=== PATIENT | male | born 1955 | race Caucasian/White ===

== ENCOUNTER 2016-08-17 03:43 | Inpatient (IN) | payer OTHER ==
[~2016-08-17] VITALS: Ht 185.4 cm; Wt 86.0 kg
[~2016-08-17 03:43] MED LIST: AMITRIPTYLIN25 MG PO; ASPIRIN EC81 MG PO; B-121000 MCG PO; BACLOFEN10 MG PO; DOCUSATE SODIUM1 TAB PO; DOXYCYCL HYC100 MG PO; FLEXERIL PO; FLEXERIL5 MG PO; HARVONI PO; IPRATROPIU0.5 MG/3 M NEB; LASIX 40 MG40 MG/TAB PO; LISINOPRIL10 MG PO; LYRICA100 MG PO; METFORMIN500 MG PO; MIRTAZAPINE15 MG PO; MOTRIN IB200 MG OR; MULTIVITAMIN PO; OMEPRAZOLE20 MG PO; PREDNISONE10 MG PO; PROVENTIL HFA IN; SILVADENE1 % EX; SIMVASTATIN20 MG PO; TEMAZEPAM15 MG PO; TRAZODONE50 MG PO; TYLENOL # 31 TAB OR; VITAMIN B-1100 M2 PO; ZOFRAN ODT4 MG OR
[2016-08-17 05:12] LABS: HEMATOCRIT 44.9 % (39.0-50.0); HEMOGLOBIN 15.4 g/dl (14.0-18.0); IMMATURE GRANULOCYTES 0.4 % (0.0-1.0); MEAN CELL VOLUME 87.9 fL CALC (80.0-100.0); MEAN CORPUSCULAR HGB 30.1 pG CALC (26.0-32.0); MEAN CORPUSCULAR HGB CONC 34.3 g/L CALC (32.0-36.0); NEUT# 13.44 thou/uL (1.82-7.42); RED BLOOD COUNT 5.11 mill/uL (4.70-6.10); RED CELL DISTRI WIDTH 15.2 % (11.5-15.5)
[2016-08-17 05:29] LABS: ALBUMIN 4.2 g/dL (3.2-5.0); ALKALINE PHOSPHATASE 97 u/l (38-126); ANION GAP 20 (6-22 (CALC)); BILIRUBIN, TOTAL 0.3 mg/dL (0.0-1.4); BUN 6 mg/dL (9-20); BUN/CREATININE RATIO 6 (12-20 (CALC)); CALCIUM 9.1 mg/dL (8.4-10.2); CARBON DIOXIDE 20 mmol/l (22-30); CHLORIDE 106 mmol/l (95-108); GFR > 60 ML/MIN (>=60 (CALC)); GFR FOR AFR.AMER. > 60 ML/MIN (>=60 (CALC)); GLUCOSE 136 mg/dL (75-110); POTASSIUM 4.1 mmol/l (3.5-5.1); PROTHROMBIN TIME 11.3 SECONDS (9.0-12.5); SGOT/AST 30 u/l (17-59); SGPT/ALT 36 u/l (21-72); SODIUM 142 mmol/l (137-146); TOTAL PROTEIN 7.3 g/dL (6.3-8.2)
[2016-08-17 11:09] LABS: URINE BILIRUBIN - DIPSTICK NEGATIVE (NEGATIVE); URINE BLOOD DIPSTICK NEGATIVE (NEGATIVE); URINE CLARITY CLEAR; URINE COLOR YELLOW; URINE GLUCOSE - DIPSTICK NEGATIVE (NEGATIVE); URINE KETONE NEGATIVE (NEGATIVE); URINE LEUK ESTERASE NEGATIVE (NEGATIVE); URINE NITRITE - DIPSTICK NEGATIVE (Negative); URINE PROTEIN - DIPSTICK NEGATIVE (NEG-TRACE); URINE UROBILINOGEN - DIPSTICK 0.2 E.U./dL (0.2)
[2016-08-17 11:32] VITALS: BP 152/90
[2016-08-17] MEDS ORDERED: TRAMADOL HCL50 MG PO (11:33)
[2016-08-17 15:08] VITALS: BP 166/90
[2016-08-17 19:15] VITALS: BP 152/96
[2016-08-17 23:35] VITALS: BP 173/78
[2016-08-18 04:44] VITALS: BP 149/92
[2016-08-18 07:39] VITALS: BP 158/86
[2016-08-18 07:40] LABS: HEMATOCRIT 44.9 % (39.0-50.0); HEMOGLOBIN 14.7 g/dl (14.0-18.0); IMMATURE GRANULOCYTES 1.4 % (0.0-1.0); MEAN CELL VOLUME 90.2 fL CALC (80.0-100.0); MEAN CORPUSCULAR HGB 29.5 pG CALC (26.0-32.0); MEAN CORPUSCULAR HGB CONC 32.7 g/L CALC (32.0-36.0); NEUT# 16.09 thou/uL (1.82-7.42); RED BLOOD COUNT 4.98 mill/uL (4.70-6.10); RED CELL DISTRI WIDTH 15.8 % (11.5-15.5)
[2016-08-18 08:01] LABS: ANION GAP 16 (6-22 (CALC)); BUN 8 mg/dL (9-20); BUN/CREATININE RATIO 9 (12-20 (CALC)); CALCIUM 9.1 mg/dL (8.4-10.2); CARBON DIOXIDE 24 mmol/l (22-30); CHLORIDE 110 mmol/l (95-108); CREATININE 0.9 mg/dL (0.7-1.3); GFR > 60 ML/MIN (>=60 (CALC)); GFR FOR AFR.AMER. > 60 ML/MIN (>=60 (CALC)); GLUCOSE 136 mg/dL (75-110); SODIUM 146 mmol/l (137-146)
[2016-08-18 15:08] VITALS: BP 154/97
[2016-08-18 20:23] VITALS: BP 173/98
[2016-08-19 03:55] VITALS: BP 167/99
[2016-08-19 06:01] LABS: HEMATOCRIT 45.1 % (39.0-50.0); HEMOGLOBIN 15.1 g/dl (14.0-18.0); IMMATURE GRANULOCYTES 0.6 % (0.0-1.0); MEAN CELL VOLUME 90.4 fL CALC (80.0-100.0); MEAN CORPUSCULAR HGB 30.3 pG CALC (26.0-32.0); MEAN CORPUSCULAR HGB CONC 33.5 g/L CALC (32.0-36.0); NEUT# 12.52 thou/uL (1.82-7.42); RED BLOOD COUNT 4.99 mill/uL (4.70-6.10); RED CELL DISTRI WIDTH 15.7 % (11.5-15.5)
[2016-08-19 06:14] LABS: ANION GAP 19 (6-22 (CALC)); BUN 10 mg/dL (9-20); BUN/CREATININE RATIO 10 (12-20 (CALC)); CALCIUM 9.4 mg/dL (8.4-10.2); CARBON DIOXIDE 22 mmol/l (22-30); CHLORIDE 111 mmol/l (95-108); GFR > 60 ML/MIN (>=60 (CALC)); GFR FOR AFR.AMER. > 60 ML/MIN (>=60 (CALC)); GLUCOSE 99 mg/dL (75-110); POTASSIUM 3.6 mmol/l (3.5-5.1); SODIUM 148 mmol/l (137-146)
[2016-08-19 08:55] VITALS: BP 174/106
[2016-08-19 09:31] VITALS: BP 174/108
[2016-08-19] MEDS ORDERED: ZITHROMAX500 MG PO (13:32)
[2016-08-19] MEDS ORDERED: VANTIN200 M1 PO (13:32)
== END 2016-08-19 15:14 | disposition home or self-care (01) | DRG 871 ==
LOC: ENPENDDIS → ED 03:43 → ED-I 04:10 → ED 04:10 → ED-I 09:30 → ED 09:48 → MS2 09:49
PROVIDERS: Emergency Medicine; Internal Medicine; ADMIT Internal Medicine; ATTEND Internal Medicine
DX: A41.9 Sepsis, unspecified organism (principal); J96.00 Acute respiratory failure, unspecified whether with hypoxia or hypercapnia; E87.2 Acidosis; J18.9 Pneumonia, unspecified organism; J44.0 Chronic obstructive pulmonary disease with (acute) lower respiratory infection; R65.20 Severe sepsis without septic shock; M47.812 Spondylosis without myelopathy or radiculopathy, cervical region; G89.29 Other chronic pain; E11.40 Type 2 diabetes mellitus with diabetic neuropathy, unspecified; F43.10 Post-traumatic stress disorder, unspecified; Z90.81 Acquired absence of spleen; Z89.511 Acquired absence of right leg below knee; Z89.512 Acquired absence of left leg below knee; Z86.73 Personal history of transient ischemic attack (TIA), and cerebral infarction without residual deficits; Z79.4 Long term (current) use of insulin; Z87.891 Personal history of nicotine dependence
CPT/HCPCS: J1650; J2060

== ENCOUNTER 2016-08-20 08:56 | Emergency (ER) | payer OTHER ==
[~2016-08-20] VITALS: Ht 185.4 cm; Wt 100.0 kg
[~2016-08-20 08:56] MED LIST changes: +TRAMADOL HCL50 MG PO; +VANTIN200 M1 PO; +ZITHROMAX500 MG PO
[2016-08-20 09:47] LABS: HEMATOCRIT 47.8 % (39.0-50.0); HEMOGLOBIN 16.4 g/dl (14.0-18.0); IMMATURE GRANULOCYTES 0.9 % (0.0-1.0); MEAN CELL VOLUME 87.2 fL CALC (80.0-100.0); MEAN CORPUSCULAR HGB 29.9 pG CALC (26.0-32.0); MEAN CORPUSCULAR HGB CONC 34.3 g/L CALC (32.0-36.0); NEUT# 22.36 thou/uL (1.82-7.42); RED BLOOD COUNT 5.48 mill/uL (4.70-6.10); RED CELL DISTRI WIDTH 15.3 % (11.5-15.5)
[2016-08-20 09:54] LABS: ALBUMIN 4.5 g/dL (3.2-5.0); ALKALINE PHOSPHATASE 119 u/l (38-126); ANION GAP 21 (6-22 (CALC)); BILIRUBIN, TOTAL 0.7 mg/dL (0.0-1.4); BUN 16 mg/dL (9-20); BUN/CREATININE RATIO 15 (12-20 (CALC)); CALCIUM 9.4 mg/dL (8.4-10.2); CARBON DIOXIDE 21 mmol/l (22-30); CHLORIDE 103 mmol/l (95-108); CREATININE 1.1 mg/dL (0.7-1.3); GFR > 60 ML/MIN (>=60 (CALC)); GFR FOR AFR.AMER. > 60 ML/MIN (>=60 (CALC)); GLUCOSE 124 mg/dL (75-110); POTASSIUM 3.8 mmol/l (3.5-5.1); SGOT/AST 46 u/l (17-59); SGPT/ALT 40 u/l (21-72); SODIUM 142 mmol/l (137-146); TOTAL PROTEIN 7.7 g/dL (6.3-8.2)
[2016-08-20 10:22] LABS: URINE BILIRUBIN - DIPSTICK NEGATIVE (NEGATIVE); URINE BLOOD DIPSTICK LARGE (NEGATIVE); URINE COLOR YELLOW; URINE GLUCOSE - DIPSTICK NEGATIVE (NEGATIVE); URINE KETONE 40 mg/dL (NEGATIVE); URINE LEUK ESTERASE NEGATIVE (NEGATIVE); URINE NITRITE - DIPSTICK NEGATIVE (Negative); URINE PROTEIN - DIPSTICK 100 mg/dL (NEG-TRACE); URINE SPECIFIC GRAVITY 1.025; URINE UROBILINOGEN - DIPSTICK 0.2 E.U./dL (0.2)
[2016-08-20 10:25] LABS: URINE CLARITY SLIGHT CLOUDY
[2016-08-20 10:26] LABS: MYOGLOBIN 891 ng/mL (0 - 121)
[2016-08-20 10:27] LABS: URINE RBC 25-50 RBC/hpf (0-5)
[2016-08-20 10:28] LABS: BARBITURATES NEGATIVE (NEGATIVE); COCAINE NEGATIVE (NEGATIVE); METHADONE NEGATIVE (NEGATIVE); OXCYCODONE NEGATIVE (NEGATIVE); TETRAHYDROCANNABIONOL NEGATIVE (NEGATIVE); TRICYLIC ANTIDEPRESSANTS POSITIVE (NEGATIVE)
[2016-08-20 13:36] VITALS: BP 152/88
== END 2016-08-20 13:38 | disposition short-term general hospital (02) | DRG 948 ==
LOC: ED 08:56
PROVIDERS: Emergency Medicine
PROC: 0T9B70Z Drainage of Bladder with Drainage Device, Via Natural or Artificial Opening (ICD-10-PCS; principal; 2016-08-20)
DX: R41.82 Altered mental status, unspecified (principal); J44.9 Chronic obstructive pulmonary disease, unspecified; R00.0 Tachycardia, unspecified; Z89.512 Acquired absence of left leg below knee; Z89.511 Acquired absence of right leg below knee; B19.20 Unspecified viral hepatitis C without hepatic coma
CPT/HCPCS: J1956; J2060; S0164

== ENCOUNTER 2016-12-28 14:51 | Inpatient (IN) | payer OTHER ==
[2016-12-28] VITALS (48 sets, daily range): BP systolic 66–113; BP diastolic 47–83
[~2016-12-28] VITALS: Ht 185.4 cm; Wt 89.9 kg
[2016-12-28 15:30] LABS: HEMATOCRIT 53.4 % (39.0-50.0); HEMOGLOBIN 16.6 g/dl (14.0-18.0); IMMATURE GRANULOCYTES 0.9 % (0.0-1.0); MEAN CELL VOLUME 89.7 fL CALC (80.0-100.0); MEAN CORPUSCULAR HGB 27.9 pG CALC (26.0-32.0); MEAN CORPUSCULAR HGB CONC 31.1 g/L CALC (32.0-36.0); PLATELET COUNT 67 thou/uL (130-400); RED BLOOD COUNT 5.95 mill/uL (4.70-6.10); RED CELL DISTRI WIDTH 16.9 % (11.5-15.5)
[2016-12-28 15:37] LABS: ALKALINE PHOSPHATASE 149 u/l (38-126); ANION GAP 25 (6-22 (CALC)); BILIRUBIN, TOTAL 0.7 mg/dL (0.0-1.4); BUN 27 mg/dL (9-20); BUN/CREATININE RATIO 13 (12-20 (CALC)); CALCIUM 10.3 mg/dL (8.4-10.2); CARBON DIOXIDE 12 mmol/l (22-30); CHLORIDE 107 mmol/l (95-108); CREATININE 2.1 mg/dL (0.7-1.3); GFR 32 ML/MIN (>=60 (CALC)); GFR FOR AFR.AMER. 39 ML/MIN (>=60 (CALC)); GLUCOSE 217 mg/dL (75-110); POTASSIUM 4.6 mmol/l (3.5-5.1); SGOT/AST 41 u/l (17-59); SGPT/ALT 28 u/l (21-72); SODIUM 139 mmol/l (137-146); TOTAL PROTEIN 6.7 g/dL (6.3-8.2)
[2016-12-28 15:44] LABS: BAND 33 % (0-8); MANUAL DIFFERENTIAL YES
[2016-12-28 15:49] LABS: MYOGLOBIN 248 ng/mL (0 - 121)
[2016-12-28] MEDS ORDERED: DORZOLAMIDE2 % OP (16:47)
[2016-12-28] MEDS ORDERED: LATANOPROST0.005 % OU (16:47)
[2016-12-28] MEDS ORDERED: FLONASE AL50 MCG/ACT (16:48)
[2016-12-28] MEDS ORDERED: AMLODIPINE5 MG PO (16:49)
[2016-12-28] MEDS ORDERED: LORTAB 1010 MG PO (16:49)
[2016-12-28 18:25] LABS: CALCIUM 9.1 mg/dL (8.4-10.2); CREATININE 1.9 mg/dL (0.7-1.3); POTASSIUM 4.9 mmol/l (3.5-5.1)
[2016-12-28 20:07] LABS: URINE BLOOD DIPSTICK NEGATIVE (NEGATIVE); URINE GLUCOSE - DIPSTICK NEGATIVE (NEGATIVE); URINE KETONE TRACE mg/dL (NEGATIVE); URINE LEUK ESTERASE NEGATIVE (NEGATIVE); URINE NITRITE - DIPSTICK NEGATIVE (Negative); URINE PROTEIN - DIPSTICK 30 mg/dL (NEG-TRACE); URINE SPECIFIC GRAVITY 1.025; URINE UROBILINOGEN - DIPSTICK 0.2 E.U./dL (0.2)
[2016-12-28 20:08] LABS: URINE BILIRUBIN - DIPSTICK MODERATE (NEGATIVE); URINE CLARITY CLOUDY; URINE COLOR DK. YELLOW
[2016-12-28 20:09] LABS: URINE CALCIUM OXALATE CRYSTALS MANY lpf; URINE SQUAMOUS EPITHELIAL CELL FEW EPI/hpf (0-FEW)
[2016-12-28 23:23] LABS: HEMATOCRIT 47.4 % (39.0-50.0); HEMOGLOBIN 14.9 g/dl (14.0-18.0)
[2016-12-29] VITALS (83 sets, daily range): BP systolic 46–118; BP diastolic 35–73
[2016-12-29 02:55] LABS: CALCIUM 7.7 mg/dL (8.4-10.2); CREATININE 2.3 mg/dL (0.7-1.3)
[2016-12-29 03:47] LABS: CALCIUM 7.7 mg/dL (8.4-10.2); CREATININE 2.3 mg/dL (0.7-1.3)
[2016-12-29 03:50] LABS: POTASSIUM 6.9 mmol/l (3.5-5.1)
[2016-12-29 04:21] LABS: HEMATOCRIT 36.4 % (39.0-50.0); HEMOGLOBIN 11.3 g/dl (14.0-18.0); MEAN CELL VOLUME 90.1 fL CALC (80.0-100.0); RED BLOOD COUNT 4.04 mill/uL (4.70-6.10); RED CELL DISTRI WIDTH 15.9 % (11.5-15.5)
[2016-12-29 05:07] LABS: IMMATURE GRANULOCYTES 0.7 % (0.0-1.0)
[2016-12-29 05:11] LABS: INTERNATIONAL NORMALIZED RATIO 1.4 RATIO (0.7-1.3); PROTHROMBIN TIME 15.9 SECONDS (9.0-12.5)
[2016-12-29 08:14] LABS: HEMATOCRIT 34.8 % (39.0-50.0); MEAN CELL VOLUME 88.8 fL CALC (80.0-100.0); MEAN CORPUSCULAR HGB 28.1 pG CALC (26.0-32.0); MEAN CORPUSCULAR HGB CONC 31.6 g/L CALC (32.0-36.0); RED BLOOD COUNT 3.92 mill/uL (4.70-6.10); RED CELL DISTRI WIDTH 15.9 % (11.5-15.5)
[2016-12-29 09:00] LABS: CALCIUM 7.8 mg/dL (8.4-10.2); CREATININE 2.4 mg/dL (0.7-1.3)
== END 2016-12-29 12:10 | disposition short-term general hospital (02) | DRG 871 ==
LOC: ED 14:51 → ED-I 15:50 → ED 16:26 → ICU 16:27
PROVIDERS: Emergency Medicine; ADMIT Internal Medicine; ATTEND Internal Medicine
PROC: 5A09357 Assistance with Respiratory Ventilation, Less than 24 Consecutive Hours, Continuous Positive Airway Pressure (ICD-10-PCS; principal; 2016-12-28)
PROC: 5A1935Z Respiratory Ventilation, Less than 24 Consecutive Hours (ICD-10-PCS; 2016-12-28)
PROC: 0BH17EZ Insertion of Endotracheal Airway into Trachea, Via Natural or Artificial Opening (ICD-10-PCS; 2016-12-28)
PROC: 0T9B70Z Drainage of Bladder with Drainage Device, Via Natural or Artificial Opening (ICD-10-PCS; 2016-12-28)
PROC: 02HV33Z Insertion of Infusion Device into Superior Vena Cava, Percutaneous Approach (ICD-10-PCS; 2016-12-28)
DX: A41.9 Sepsis, unspecified organism (principal); R65.21 Severe sepsis with septic shock; J96.00 Acute respiratory failure, unspecified whether with hypoxia or hypercapnia; J18.9 Pneumonia, unspecified organism; E87.4 Mixed disorder of acid-base balance; N17.9 Acute kidney failure, unspecified; D69.6 Thrombocytopenia, unspecified; J44.0 Chronic obstructive pulmonary disease with (acute) lower respiratory infection; K92.2 Gastrointestinal hemorrhage, unspecified; I10 Essential (primary) hypertension; M50.30 Other cervical disc degeneration, unspecified cervical region; E11.9 Type 2 diabetes mellitus without complications; E87.5 Hyperkalemia; E83.39 Other disorders of phosphorus metabolism; Z87.891 Personal history of nicotine dependence; Z89.021 Acquired absence of right finger(s); Z89.511 Acquired absence of right leg below knee; Z89.512 Acquired absence of left leg below knee; Z86.73 Personal history of transient ischemic attack (TIA), and cerebral infarction without residual deficits
CPT/HCPCS: J2060; J3370; S0164